=== PATIENT | female | born 1990 | race Caucasian/White ===

== ENCOUNTER 2022-03-25 11:25 | Emergency (ER) | payer OTHER ==
[~2022-03-25] VITALS: Ht 167.6 cm; Wt 93.4 kg
[2022-03-25] MEDS ORDERED: ZANAFLEX4 MG PO (12:01)
[2022-03-25] MEDS ORDERED: DIMETHYL FUMAR240 MG PO (12:01)
[2022-03-26] MEDS ORDERED: IBUPROFEN800 MG PO (10:03)
[2022-03-26] MEDS ORDERED: SOLU-MEDRO1000 MG/8 IV (10:04)
== END 2022-03-25 16:00 | disposition home or self-care (01) ==
LOC: ED 11:25
DX: G35 Multiple sclerosis (principal); M54.50 Low back pain, unspecified
CPT/HCPCS: 81001; 84703; 96374; 96375; 99284-25; A9270; J1885; J2930; J7050

== ENCOUNTER 2022-03-26 09:43 | Emergency (ER) | payer OTHER ==
[~2022-03-26] VITALS: Ht 167.6 cm; Wt 93.4 kg
[~2022-03-26 09:43] MED LIST: DIMETHYL FUMAR240 MG PO; ZANAFLEX4 MG PO
--- OUTSIDE RECORDS SUMMARY | 2022-03-26 09:52 | XMS ---
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 E.D. VISIT COUNT (12 MO.) 3 Skip WyattDebora 2 [facility] TOTAL 5 NOTE: Visits indicate total known visits. ED/UCC VISIT TRACKING (12 MO.) 03/26/2022 09:45 [facility] TYPE: Emergency COMPLAINT: - LOWER BACK PAIN, CHEST PAIN, HIGH HEART RATE 03/25/2022 11:26 [facility] TYPE: Emergency COMPLAINT: - LOWER BACK PAIN, NUMBNESS IN LOWER EXTREMITIES 07/31/2021 17:05 [facility] TYPE: Emergency DIAGNOSES: - Vomiting, unspecified - Dehydration - Emesis 07/25/2021 17:33 [facility] TYPE: Emergency DIAGNOSES: - Nausea with vomiting, unspecified - Post Infusion Issues - red swollen face, sob - Unspecified adverse effect of drug or medicament, initial encounter - Shortness of Breath 07/02/2021 15:03 [facility] TYPE: Emergency DIAGNOSES: - Lumbago with sciatica, right side - Lumbago with sciatica, left side - Numbness - Full incontinence of feces - Unspecified urinary incontinence - Sciatica, right side - Back Pain INPATIENT VISIT TRACKING (12 MO.) No inpatient visits to display in this time frame [email or web address]
[2022-03-26] MEDS ORDERED: IBUPROFEN800 MG PO (10:03)
[2022-03-26] MEDS ORDERED: SOLU-MEDRO1000 MG/8 IV (10:04)
--- NOTE | 2022-03-26 20:47 | EKG ---
[facility] [address] [facility] [place], [place] [address] Signed Normal sinus rhythm Possible Anterior infarct (cited on or before 26-MAR-2022) Abnormal ECG When compared with ECG of 26-MAR-2022 09:56, (Unconfirmed) No significant change was found Confirmed by ASHLEIGH GRANADO MD ([id number]) on 03/26/2022 8:46:44 PM Electronically Signed By: ASHLEIGH GRANADO MD 03/26/222046 PATIENT NAME: REJI ANDRES SARIKA Electrocardiogram DATE OF : 86 PHYSICIAN: ASHLEIGH GRANADO MD REPORT #: [id number] REPORT IS CONFIDENTIAL AND NOT TO BE RELEASED WITHOUT AUTHORIZATION
== END 2022-03-26 16:55 | disposition home or self-care (01) ==
LOC: ED 09:43
DX: G35 Multiple sclerosis (principal); F41.9 Anxiety disorder, unspecified; Z20.822 Contact with and (suspected) exposure to COVID-19
CPT/HCPCS: 36415; 80053; 83735; 84443; 84484; 85025; 85379; 87502; 93005; 93010; 96365; 96366; 96375; 99285-25; A9270; C9803; J1885; J2060; J2930; J7030; J7050; U0003

== ENCOUNTER 2022-08-19 20:49 | Emergency (ER) | payer OTHER ==
[~2022-08-19] VITALS: Ht 167.6 cm; Wt 81.0 kg
[~2022-08-19 20:49] MED LIST changes: +IBUPROFEN800 MG PO; +SOLU-MEDRO1000 MG/8 IV
[2022-08-19] MEDS ORDERED: REBIF REBI44 MCG/0.5 SUB-Q (22:05)
[2022-08-20 00:06] VITALS: BP 105/73
[2022-08-21] MEDS ORDERED: TRAZODONE HCL50 MG PO (11:38)
[2022-08-21] MEDS ORDERED: ALBUTEROL2.5 MG/3 M INH (21:14)
[2022-08-21] MEDS ORDERED: CEFPODOXIME PR200 MG PO (21:15)
== END 2022-08-20 00:07 | disposition home or self-care (01) ==
LOC: ED 20:49
DX: B34.9 Viral infection, unspecified (principal); Z79.899 Other long term (current) drug therapy; Z20.822 Contact with and (suspected) exposure to COVID-19
CPT/HCPCS: 36415; 71045; 80053; 83605; 85025; 87502; 94640; 99284-25; A9270; J7030; U0003

== ENCOUNTER 2022-08-20 22:38 | Inpatient (IN) | payer OTHER ==
[~2022-08-20] VITALS: Ht 167.6 cm; Wt 83.2 kg
[~2022-08-20 22:38] MED LIST changes: +REBIF REBI44 MCG/0.5 SUB-Q
--- OUTSIDE RECORDS SUMMARY | 2022-08-20 22:48 | XMS ---
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 Mary Beth VISIT COUNT (12 MO.) 4 PETER Vidal TOTAL 4 NOTE: Visits indicate total known visits. ED/C VISIT TRACKING (12 MO.) 08/20/2022 22:39 [facility] TYPE: Emergency COMPLAINT: - VOMITING,ABD PAIN 08/19/2022 20:50 [facility] TYPE: Emergency COMPLAINT: - FLU SYMPTOMS 03/26/2022 09:45 [facility] [place] TYPE: Emergency COMPLAINT: - LOWER BACK PAIN, CHEST PAIN, HIGH HEART RATE DIAGNOSES: - Anxiety disorder, unspecified - Contact with and (suspected) exposure to COVID-19 - Multiple sclerosis - Palpitations 03/25/2022 11:26 [facility] [place] TYPE: Emergency COMPLAINT: - LOWER BACK PAIN, NUMBNESS IN LOWER EXTREMITIES DIAGNOSES: - Low back pain, unspecified - Multiple sclerosis INPATIENT VISIT TRACKING (12 MO.) 05/01/2022 11:53 [facility] TYPE: Neurology DIAGNOSES: - Major depressive disorder, single episode, moderate - Multiple sclerosis - Unspecified abnormalities of gait and mobility - MS Exacerbation [id number]
[2022-08-21] VITALS (7 sets, daily range): BP systolic 90–112; BP diastolic 53–65
[2022-08-21] MEDS ORDERED: TRAZODONE HCL50 MG PO (11:38)
[2022-08-21] MEDS ORDERED: ALBUTEROL2.5 MG/3 M INH (21:14)
[2022-08-21] MEDS ORDERED: CEFPODOXIME PR200 MG PO (21:15)
[2022-08-22 05:17] VITALS: BP 102/69
[2022-08-22 09:18] VITALS: BP 114/63
[2022-08-22] MEDS ORDERED: ALBUTEROL1.25 MG/3 INH (09:30)
== END 2022-08-22 10:07 | disposition home or self-care (01) | DRG 194 ==
LOC: ED 22:38 → MS 22:40
PROVIDERS: ADMIT Internal Medicine; ATTEND Internal Medicine
DX: J18.9 Pneumonia, unspecified organism (principal); D84.89 Other immunodeficiencies; G95.89 Other specified diseases of spinal cord; I95.9 Hypotension, unspecified; G35 Multiple sclerosis; M21.371 Foot drop, right foot; F32.A Depression, unspecified; I51.7 Cardiomegaly; Z91.013 Allergy to seafood; Z88.8 Allergy status to other drugs, medicaments and biological substances; Z79.899 Other long term (current) drug therapy
CPT/HCPCS: 36415; 51701; 71045; 74177; 80048; 80053; 81001; 83605; 83735; 84703; 85025; 85379; 85610; 85730; 94640; 94667; 94762; 97162; 99285-25; A9270; J0456; J0696; J1200; J1650; J7030; Q9967

== ENCOUNTER 2023-05-19 23:23 | Emergency (ER) | payer MEDICARE, OTHER ==
[~2023-05-19] VITALS: Ht 167.6 cm; Wt 80.3 kg
[~2023-05-19 23:23] MED LIST changes: +ALBUTEROL1.25 MG/3 INH; +ALBUTEROL2.5 MG/3 M INH; +CEFPODOXIME PR200 MG PO; +ONDANSETRON ODT8 MG PO; +TRAZODONE HCL50 MG PO
[2023-05-20 01:53] VITALS: BP 111/68
== END 2023-05-20 01:54 | disposition home or self-care (01) ==
LOC: ED 23:23
DX: J02.9 Acute pharyngitis, unspecified (principal); Z91.048 Other nonmedicinal substance allergy status; Z91.013 Allergy to seafood; Z79.899 Other long term (current) drug therapy
CPT/HCPCS: 87651; 99283

== ENCOUNTER 2023-12-09 21:59 | Emergency (ER) | payer MEDICARE, OTHER ==
[~2023-12-09] VITALS: Ht 167.6 cm; Wt 87.1 kg
[~2023-12-09 21:59] MED LIST changes: +PROMETHAZINE HC25 M1 PO
[2023-12-09 22:50] LABS: HEMATOCRIT 44.8 % (35.0-50.0); HEMOGLOBIN 14.9 g/dL (12.0-18.0); MCH 30.4 (27-36); MCHC 33.2 g/dl (30-36); MCV 91.7 fl (81-99); PLATELET COUNT 221 K/uL (140-440); RBC 4.89 M/ul (4.3-5.7); RDW 13.3 (10.5-15.0)
[2023-12-09 22:53] LABS: PARTIAL THROMBOPLASTIN TIME 25.1 Sec (22.9-41.3)
[2023-12-09 22:54] LABS: INR 0.95 (0.80-1.30)
[2023-12-09 22:58] LABS: ALBUMIN 3.7 g/dL (3.4-5.0); ALBUMIN/GLOBULIN RATIO 1.06 (1.1-2.4); ANION GAP 12.8 (7-21); BILIRUBIN, TOTAL 0.2 ng/dL (0.2-1.0); BUN/CREATININE RATIO 17.04 (6.0-28.6); CALCIUM 9.2 mg/dL (8.5-10.1); CREATININE, SERUM 0.88 mg/dL (0.55-1.02); POTASSIUM 3.8 mmol/L (3.5-5.1); PROTEIN, TOTAL 7.2 g/dL (6.4-8.2)
[2023-12-09 23:04] LABS: EOSINOPHILS, MANUAL DIFF 2; LYMPHOCYTES, MANUAL DIFF 59; MONOCYTES, MANUAL DIFF 3; NEUTROPHILS, MANUAL DIFF 36
[2023-12-10 00:02] VITALS: BP 102/77
== END 2023-12-10 00:03 | disposition home or self-care (01) ==
LOC: ED 21:59
PROVIDERS: Internal Medicine
DX: K92.1 Melena (principal); Z91.013 Allergy to seafood; Z91.09 Other allergy status, other than to drugs and biological substances
CPT/HCPCS: 36415; 80053; 85025; 85610; 85730; 99284

== ENCOUNTER 2024-01-24 03:21 | Emergency (ER) | payer MEDICARE, OTHER ==
[~2024-01-24] VITALS: Ht 167.6 cm; Wt 85.0 kg
[2024-01-24 03:55] LABS: BILIRUBIN, URINE NEGATIVE (negative); BLOOD/HGB, URINE NEGATIVE (Negative); KETONE, URINE NEGATIVE (Negative); LEUK ESTERASE, URINE NEGATIVE (negative); NITRITE, URINE NEGATIVE (negative)
[2024-01-24] MEDS ORDERED: KETOROLAC TROMETHAMINE 60 MG/2 ML VIAL IM ONE (04:00)
[2024-01-24] MEDS ORDERED: LIDOCAINE HCL 4% 1 EACH PATCH TD ONE (04:00)
[2024-01-24] MEDS ORDERED: TIZANIDINE HCL 4 MG TABLET PO ONE (04:30)
[2024-01-24] MEDS ORDERED: HYDROCODONE/APAP 10/325 1 TAB PO ONE (04:30)
[2024-01-24] MEDS ORDERED: METHYLPREDNISOLO4 M1 PO (05:43)
[2024-01-24] MEDS ORDERED: ZANAFLEX4 M1 PO (05:43)
[2024-01-24] MEDS ORDERED: LIDODERM1 EACH TOP (05:43)
[2024-01-24] MEDS ORDERED: CYCLOBENZAPRINE HCL 10 MG HOME.PACK PO ONE (05:45)
[2024-01-24] MEDS ORDERED: HYDROCODONE BIT/ACETAMINOPHEN 5/325 MG 1 TAB HOME.PACK PO ONE (05:45)
[2024-01-24 05:57] VITALS: BP 99/61
[2024-01-24] MEDS ORDERED: LIDOCAINE PATCH REMOVAL 1 EA TD SCH (21:00)
== END 2024-01-24 05:57 | disposition home or self-care (01) ==
LOC: ED 03:21
PROVIDERS: Internal Medicine
DX: M54.41 Lumbago with sciatica, right side (principal); Z91.013 Allergy to seafood; Z91.041 Radiographic dye allergy status; Z91.048 Other nonmedicinal substance allergy status; Z79.899 Other long term (current) drug therapy
CPT/HCPCS: 81003; 84703; 96372; 99283; A9270; J1885

== ENCOUNTER 2024-05-27 21:41 | Emergency (ER) | payer MEDICARE, OTHER ==
[~2024-05-27 21:41] MED LIST changes: +LIDODERM1 EACH TOP; +METHYLPREDNISOLO4 M1 PO; +ZANAFLEX4 M1 PO
[2024-05-27] MEDS ORDERED: LACTATED RINGER'S 1,000 ML IV ONE (22:15)
[2024-05-27] MEDS ORDERED: ondansetron HCL 4 MG/2 ML VIAL IV ONE (22:30)
[2024-05-27] MEDS ORDERED: MORPHINE SULFATE 4 MG/ML VIAL IV ONE (22:30)
[2024-05-27] MEDS ORDERED: DEXAMETHASONE SOD PHOS 4 MG/ML VIAL IV ONE (22:45)
[2024-05-27] MEDS ORDERED: diphenhydrAMINE HCL 50 MG/ML VIAL IV ONE (22:45)
[2024-05-27 22:52] LABS: BASOPHILS 0.7 % (0-2); EOSINOPHILS 0.1 % (0-6); HEMATOCRIT 41.4 % (35.0-50.0); HEMOGLOBIN 14.3 g/dL (12.0-18.0); LYMPHOCYTES 25.1 % (24-44); MCH 31.2 (27-36); MCHC 34.7 g/dl (30-36); MCV 89.8 fl (81-99); MONOCYTES 5.9 % (0-12); NEUTROPHILS 68.2 % (39-80); PLATELET COUNT 214 K/uL (140-440); RDW 13.4 (10.5-15.0)
[2024-05-27 23:10] LABS: ALBUMIN 3.6 g/dL (3.4-5.0); ALBUMIN/GLOBULIN RATIO 1.03 (1.1-2.4); BILIRUBIN, TOTAL 0.2 mg/dL (0.2-1.0); BUN/CREATININE RATIO 11.21 (6.0-28.6); CREATININE, SERUM 1.07 mg/dL (0.55-1.02); PROTEIN, TOTAL 7.1 g/dL (6.4-8.2)
[2024-05-27] MEDS ORDERED: ACETAMINOPHEN 325 MG TAB PO ONE (23:30)
[2024-05-28] MEDS ORDERED: ACETAMINOPHEN 325 MG TAB ONE (00:03)
[2024-05-28] MEDS ORDERED: PIPERACILLIN/TAZOBACTAM 3.375 GM in SODIUM CHLORIDE 0.9% 100 ML IV ONE ×2 (00:15→00:30)
[2024-05-28] MEDS ORDERED: PIPERACILLIN/TAZOBACTAM 3.375 GM VIAL ONE (00:21)
[2024-05-28] MEDS ORDERED: HYDROCODON-ACE1 EA10 PO (00:52)
[2024-05-28] MEDS ORDERED: ONDANSETRON ODT8 MG PO (00:52)
[2024-05-28] MEDS ORDERED: AMOX TR-K CLV1 EAC1 PO (00:52)
[2024-05-28] MEDS ORDERED: ONDANSETRON 4 MG HOME.PACK SL ONE (01:00)
[2024-05-28] MEDS ORDERED: AMOXICILLIN/CLAVULANATE K 875 MG HOME.PACK PO ONE (01:00)
[2024-05-28] MEDS ORDERED: HYDROCODONE BIT/ACETAMINOPHEN 5/325 MG 1 TAB HOME.PACK PO ONE (01:00)
[2024-05-28 01:30] VITALS: BP 117/76
== END 2024-05-28 01:32 | disposition home or self-care (01) ==
LOC: ED 21:41
PROVIDERS: Family Medicine
DX: L02.215 Cutaneous abscess of perineum (principal); Z91.013 Allergy to seafood; Z91.041 Radiographic dye allergy status; Z91.048 Other nonmedicinal substance allergy status; Z79.899 Other long term (current) drug therapy
CPT/HCPCS: 36415; 72193; 80053; 84703; 85025; 96375; 99283-25; A9270; J1100; J1200; J2405; J2543; J7121; Q9967